=== PATIENT | male | born 1990 | race Caucasian/White ===

== ENCOUNTER 2017-03-22 20:18 | Emergency (ER) | payer OTHER ==
[2017-03-22] MEDS ORDERED: LORAZEPAM 2 MG/ML SOL IV PRN (20:34)
[2017-03-22 20:35] VITALS: TEMP 98.7; O2SAT 97
[2017-03-22] MEDS ORDERED: SODIUM CHLORIDE 0.9% 1000ML 1,000 ML IV SCH (20:45)
[2017-03-22 20:50] LABS: BASOPHILS % (AUTO) 1 % (0-3); EOSINOPHILS % (AUTO) 1 % (0-9); HEMATOCRIT 44 % (39-53); MEAN CORPUSCULAR VOLUME 84 fL (80-100); MONOCYTES % (AUTO) 6.3 % (0-12); NEUTROPHILS % (AUTO) 76.5 % (37-80)
[2017-03-22 21:09] LABS: ALBUMIN 4.1 gm/dl (3.4-5.0); ALT 71 IU/L (14-63); CALCIUM 8.6 mg/dl (8.5-10.1); GLOM FILT RATE 72 mL/min (>60); SODIUM 140 mMol/L (136-145)
[2017-03-22 21:55] LABS: APPEARANCE,URINE Clear; BILIRUBIN,URINE NEGATIVE (NEGATIVE); COLOR,URINE Yellow; GLUCOSE, URINE (UA) NEGATIVE (NEGATIVE); KETONES,URINE NEGATIVE (NEGATIVE); LEUKOCYTE ESTERASE ,URINE NEGATIVE (NEGATIVE); NITRATE,URINE NEGATIVE (NEGATIVE); OCCULT BLOOD,URINE NEGATIVE (NEG-TRACE); UROBILINOGEN,URINE 0.2 (0.2-1.0 EU)
[2017-03-22 22:10] LABS: RBC,URINE NEG (0-3AV/HPF)
[2017-03-22 22:11] LABS: AMPHETAMINES NEGATIVE (NEGATIVE); METHADONE NEGATIVE (NEGATIVE); OPIATES(OP13) NEGATIVE (NEGATIVE); OXYCODONE(OXY) NEGATIVE (NEGATIVE); PROPOXYPHENE(PPX) NEGATIVE (NEGATIVE); TRICYCLIC ANTIDEPRESSANTS POSITIVE (NEGATIVE)
[2017-03-22 22:39] VITALS: BP 157/94; PULSE 112; RESP 21
== END 2017-03-22 22:34 | disposition home or self-care (01) ==
LOC: ED 20:18
DX: R56.9 Unspecified convulsions (principal); M54.2 Cervicalgia
CPT/HCPCS: 36415; 70450; 72125; 80053; 80305; 80307; 81001; 85025; 96365; 99284; 99285